=== PATIENT | male | born 1955 | race Caucasian/White ===

== ENCOUNTER → 2020-02-14 | Outpatient (CLI) | payer MEDICARE, OTHER | LOC: KOH-I 13:57 | DX: J32.9 Chronic sinusitis, unspecified (principal) | CPT/HCPCS: 70486 ==

== ENCOUNTER → 2021-08-18 | Outpatient (CLI) | payer MEDICARE | LOC: MRI 12:44 | DX: M54.50 Low back pain, unspecified (principal); M51.36 Other intervertebral disc degeneration, lumbar region; M48.061 Spinal stenosis, lumbar region without neurogenic claudication; M47.816 Spondylosis without myelopathy or radiculopathy, lumbar region | CPT/HCPCS: 72148 ==

== ENCOUNTER → 2021-11-04 | Outpatient (CLI) | payer MEDICARE | LOC: KOH-I 11-03 16:15 | DX: M48.04 Spinal stenosis, thoracic region (principal); M47.24 Other spondylosis with radiculopathy, thoracic region | CPT/HCPCS: 72146 ==